=== PATIENT | male | born 1970 | race Caucasian/White ===

== ENCOUNTER → 2017-07-17 | Outpatient (CLI) | payer OTHER ==
[~2017-07-17] MED LIST: GLUCOPHAGE500 MG; LEXAPRO20 MG; LOPRESSOR
== END ==
LOC: CAT 12:51
DX: N13.30 Unspecified hydronephrosis (principal); R31.9 Hematuria, unspecified

== ENCOUNTER → 2018-03-30 | Outpatient (CLI) | payer OTHER | LOC: RAD 13:42 | DX: M54.16 Radiculopathy, lumbar region (principal) ==

== ENCOUNTER → 2020-04-14 | Outpatient (CLI) | payer OTHER | LOC: CAT 08:39 | PROVIDERS: ATTEND Nurse Practitioner | DX: K76.0 Fatty (change of) liver, not elsewhere classified (principal); N28.89 Other specified disorders of kidney and ureter; D71 Functional disorders of polymorphonuclear neutrophils; R16.0 Hepatomegaly, not elsewhere classified; N20.0 Calculus of kidney; R59.9 Enlarged lymph nodes, unspecified ==

== ENCOUNTER → 2020-08-02 | Outpatient (CLI) | payer OTHER | LOC: LAB 14:14 | PROVIDERS: ATTEND Family Medicine | DX: Z20.828 Contact with and (suspected) exposure to other viral communicable diseases (principal) ==

== ENCOUNTER → 2020-08-09 | Outpatient (CLI) | payer OTHER | LOC: LAB 08:18 | PROVIDERS: ATTEND Nurse Practitioner | DX: R05 Cough (principal); R06.02 Shortness of breath; R50.9 Fever, unspecified; Z20.828 Contact with and (suspected) exposure to other viral communicable diseases ==

== ENCOUNTER → 2020-08-22 | Outpatient (CLI) | payer OTHER | LOC: RAD 09:04 | PROVIDERS: ATTEND Nurse Practitioner | DX: I51.7 Cardiomegaly (principal) ==

== ENCOUNTER → 2020-10-06 | Outpatient (CLI) | payer OTHER | LOC: CAT 12:25 | PROVIDERS: ATTEND Internal Medicine Cardiovascular Disease | DX: Z13.6 Encounter for screening for cardiovascular disorders (principal); I25.10 Atherosclerotic heart disease of native coronary artery without angina pectoris; E78.00 Pure hypercholesterolemia, unspecified ==

== ENCOUNTER 2021-02-01 16:36 | Observation (INO) | payer OTHER ==
[~2021-02-01] VITALS: Ht 180.3 cm; Wt 163.3 kg
[~2021-02-01 16:36] MED LIST changes: -GLUCOPHAGE500 MG; +GLUCOPHAGE500 MG PO
[2021-02-01 16:48] VITALS: BP 183/78
[2021-02-01 17:52] LABS: ABSOLUTE NEUTROPHILS 7.4 thou/uL (1.4-8.2); BASOPHILS 0.3 % (0.0-2.0); EOSINOPHILS 1.2 % (0.0-3.0); HEMATOCRIT 36.8 % (42.0-52.0); HEMOGLOBIN 12.5 gm/dL (14.0-18.0); MCH 29.3 pg (26.0-34.0); MCHC 33.8 g/dL (28.0-37.0); MCV 86.6 fL (80.0-100.0); MONOCYTES 5.6 % (1.0-8.0); PLATELET COUNT 157 thou/uL (150-400); POLYS 80.9 % (36.0-66.0); RBC 4.25 mil/uL (4.50-6.00); RDW 14.2 % (10.5-14.5); WBC 9.1 thou/uL (4.0-11.0)
[2021-02-01 18:01] LABS: CALCIUM 9.2 mg/dL (8.5-10.1); CREATININE 1.6 mg/dL (0.7-1.3); POTASSIUM 4.3 mmol/L (3.5-5.1)
[2021-02-01 18:07] LABS: ALBUMIN 3.4 g/dL (3.4-5.0); TOTAL BILIRUBIN 0.3 mg/dL (0.2-1.0); TOTAL PROTEIN 8.3 g/dL (6.4-8.2)
[2021-02-01 18:45] LABS: URINE BILIRUBIN NEGATIVE (Negative); URINE BLOOD 1+ (Negative); URINE CLARITY CLEAR; URINE COLOR YELLOW; URINE GLUCOSE-RANDOM* NEGATIVE (Negative); URINE KETONES NEGATIVE (Negative); URINE LEUKOCYTES-REFLEX NEGATIVE (Negative); URINE NITRITE-REFLEX NEGATIVE (Negative); URINE PROTEIN (DIPSTICK) NEGATIVE (Negative); URINE SPECIFIC GRAVITY >= 1.030 (1.005-1.035); URINE UROBILINOGEN 0.2 E.U./dl (0.2-1.0)
[2021-02-01 18:56] LABS: BACTERIA-REFLEX None Seen /HPF (None Seen); CASTS None Seen /LPF (None Seen); SQUAMOUS None Seen /LPF (0-3); URINE RBC 1-2 Rare /HPF (NONE SEEN); URINE WBC-REFLEX 0-5 Rare /HPF (0-5)
[2021-02-01 18:57] LABS: CRYSTALS None Seen /LPF (None Seen)
[2021-02-01] MEDS ORDERED: ROSUVASTATIN CA20 MG PO (21:38)
[2021-02-01] MEDS ORDERED: EDARBI80 MG PO (21:55)
[2021-02-01] MEDS ORDERED: BYSTOLIC10 MG PO (21:56)
[2021-02-02 05:38] LABS: CALCIUM 8.5 mg/dL (8.5-10.1); CREATININE 1.6 mg/dL (0.7-1.3); POTASSIUM 4.3 mmol/L (3.5-5.1)
[2021-02-02 05:54] LABS: CHOLESTEROL 140 mg/dL (<200); HDL CHOLESTEROL 32 mg/dL (>40); LDL CHOLESTEROL 69 mg/dL (<100); TC:HDL 4.4 Ratio (Not establshd); TRIGLYCERIDE 195 mg/dL (<150); VLDL 39 mg/dL (<40)
[2021-02-02 05:56] LABS: SERUM ASSESSMENT Clear
[2021-02-02 07:04] VITALS: BP 133/57
[2021-02-02 07:18] VITALS: BP 144/78
[2021-02-02] MEDS ORDERED: FLOMAX0.4 MG PO (10:51)
[2021-02-02] MEDS ORDERED: TRAMADOL 50 MG50 MG PO (10:52)
[2021-02-02 11:43] VITALS: BP 144/78
[2021-02-03 00:06] LABS: GLYCOHEMOGLOBIN (HGB A1C) 8.6 % (4.8-5.6)
== END 2021-02-02 13:05 | disposition home or self-care (01) ==
LOC: ER 16:36 → 4W 20:42 → EROBS 20:42 → 4W 20:42
PROVIDERS: Nurse Practitioner Family; Physician Assistant; ADMIT Hospitalist; ATTEND Hospitalist
DX: N20.2 Calculus of kidney with calculus of ureter (principal); I10 Essential (primary) hypertension; Z20.822 Contact with and (suspected) exposure to COVID-19; E78.5 Hyperlipidemia, unspecified; E11.9 Type 2 diabetes mellitus without complications; E66.01 Morbid (severe) obesity due to excess calories; Z68.43 Body mass index [BMI] 50.0-59.9, adult; Z79.84 Long term (current) use of oral hypoglycemic drugs; Z79.899 Other long term (current) drug therapy

== ENCOUNTER → 2021-02-05 | Outpatient (CLI) | payer OTHER ==
[~2021-02-05] MED LIST changes: +BYSTOLIC10 MG PO; +EDARBI80 MG PO; +FLOMAX0.4 MG PO; +ROSUVASTATIN CA20 MG PO; +TRAMADOL 50 MG50 MG PO
== END ==
LOC: SJCVCIMAG 02-02 07:33
PROVIDERS: ATTEND Internal Medicine Cardiovascular Disease
DX: R06.00 Dyspnea, unspecified (principal); R53.83 Other fatigue; E78.5 Hyperlipidemia, unspecified; E11.9 Type 2 diabetes mellitus without complications; I10 Essential (primary) hypertension; F41.9 Anxiety disorder, unspecified; Z82.49 Family history of ischemic heart disease and other diseases of the circulatory system; Z79.82 Long term (current) use of aspirin; Z79.899 Other long term (current) drug therapy; Z72.89 Other problems related to lifestyle